=== PATIENT | male | born 1970 | race American Indian/Alaskan Native ===

== ENCOUNTER 2025-02-07 11:29 | Emergency (ER) | payer MEDICAID, OTHER ==
[~2025-02-07] VITALS: Ht 170.2 cm; Wt 66.9 kg
[2025-02-07 11:31] VITALS: O2SAT 100
[2025-02-07 12:34] LABS: BASOPHILS % 0.5 % (0.0-2.0); EOSINOPHILS % 3.4 % (0.0-5.0); HEMATOCRIT. 41.2 % (42.0-52.0); HEMOGLOBIN. 13.9 g/dL (14.0-18.0); LYMPHOCYTES % 26.7 % (20.0-50.0); MEAN CORPUSCULAR HEMOGLOBIN 28.9 pg (28.0-32.0); MEAN CORPUSCULAR HGB CONC 33.8 g/dL (31.0-37.0); MEAN CORPUSCULAR VOLUME 85.6 fL (80.0-94.0); MEAN PLATELET VOLUME 8.8 fl (7.4-10.4); MONOCYTES % 13.8 % (2.0-8.0); NEUTROPHILS % 55.6 % (40.0-76.0); PLATELET 262 x1000/uL (130-400); RED BLOOD CELL COUNT 4.82 mill/uL (4.7-6.1); WHITE BLOOD COUNT 7.1 x1000/uL (4.5-11.0)
[2025-02-07 12:42] LABS: INR 0.9; PROTHROMBIN TIME 10.2 sec (9.6-11.0)
[2025-02-07 12:46] LABS: CHLORIDE 98 mEq/L (98-107); POTASSIUM 4.1 mEq/L (3.5-5.1); SODIUM 133 mEq/L (136-145)
[2025-02-07 12:47] LABS: CALCIUM 9.5 mg/dL (8.7-10.4); CARBON DIOXIDE 26 mEq/L (21-32)
[2025-02-07] MEDS: ASPIRIN 81MG TABLET PO ONE (12:49)
[2025-02-07 12:52] LABS: GLUCOSE 332 mg/dL (70-105); UREA NITROGEN BLOOD 19 mg/dL (9-23)
[2025-02-07 12:53] LABS: ETHANOL BLOOD < 10 mg/dL (<10)
[2025-02-07 13:23] LABS: TROPONIN I HIGH SENSITIVITY < 4 ng/L (3.0-53)
[2025-02-07] MEDS ORDERED: DEXTROSE 50% WATER 50ML SYRINGE IV PRN (14:00)
[2025-02-07] MEDS ORDERED: ACETAMINOPHEN 325MG TABLET PO PRN (14:00)
[2025-02-07] MEDS ORDERED: ONDANSETRON HCL 4MG/2ML INJ IV PRN (14:00)
[2025-02-07] MEDS: ASPIRIN 81MG TABLET PO SCH (14:00)
[2025-02-07] MEDS: IOHEXOL-350 100 ML BOTTLE ONE (14:25)
[2025-02-07] MEDS: INSULIN GLARGINE 100 UNITS/ML SUBCUT NR (14:35)
[2025-02-07] MEDS: AMLODIPINE 10MG TABLET PO SCH (14:35)
[2025-02-07 15:11] VITALS: BP 146/95; PULSE 92; RESP 19; TEMP 36.6; O2SAT 97
[2025-02-07] MEDS ORDERED: BLOOD SUGAR DIAGNOSTIC STRIP TEST SCH (17:00)
[2025-02-07] MEDS ORDERED: INSULIN LISPRO 100 UNITS/ML SUBCUT SCH (18:20)
[2025-02-07] MEDS ORDERED: ATORVASTATIN CALCIUM 40MG TABLET PO SCH (21:00)
[2025-02-07] MEDS ORDERED: INSULIN GLARGINE 100 UNITS/ML SUBCUT SCH (22:00)
== END 2025-02-07 15:11 | disposition short-term general hospital (02) ==
LOC: ER 11:29
DX: G45.9 Transient cerebral ischemic attack, unspecified (principal); E11.9 Type 2 diabetes mellitus without complications; I49.9 Cardiac arrhythmia, unspecified
CPT/HCPCS: 80048; 80320; 82962; 85025; 85610; 84484; 36415; 71045; 70496; 70498; 70450; 93005; 96372; 99291; Q9967; Z7610; J1815; G0480